=== PATIENT | female | born 1930 | race Caucasian/White ===

== ENCOUNTER 2017-08-14 23:16 | Emergency (ER) | payer OTHER ==
[~2017-08-14] VITALS: Ht 162.6 cm; Wt 52.5 kg
[~2017-08-14 23:16] MED LIST: AMLODIPINE BES2.5 MG PO; ARICEPT10 MG PO; ASPIR 8181 M1 PO; AVALIDE 150/1 TABLET PO; AVAPRO150 MG PO; CALCIUM 600 +1 EAC1 PO; CALCIUM OYSTER500 MG PO; CALTRATE 6001 TABLET PO; CELEXA20 MG PO; DIOVAN HCT 1601 EAC1 PO; DONEPEZIL HCL5 MG PO; FLEXERIL10 MG PO; FOSAMAX70 MG PO; LOSARTAN POTASS50 MG PO; MULTIVITAMIN1 EAC1 PO; NAMENDA5 MG PO; NORVASC2.5 MG PO; NORVASC5 MG PO; VICODIN 5-3001 EACH PO
[2017-08-15 00:07] LABS: HEMATOCRIT 37.6 % (36.0-46.0); MCH 28.6 PG (29.0-34.0); MCHC 32.7 G/DL (30.0-36.0); MCV 87.4 FL (83-99); MEAN PLAT.VOLUME 8.8 uM^3 (9.5-12.4); PLATELET COUNT 219 K/uL (156-360); RBC DIS.WIDTH-CV 13.9 % (11.8-14.6); WHITE BLOOD COUNT 5.9 K/uL (4.1-10.2)
[2017-08-15 00:17] LABS: CHLORIDE 108 mEq/L (99-109); POTASSIUM 3.9 mEq/L (3.7-5.4); SODIUM 143 mEq/L (136-147)
[2017-08-15 00:19] LABS: GLUCOSE 124 mg/dL (70-99)
[2017-08-15 00:20] LABS: ANION GAP 9 MEQ/L (2-14)
[2017-08-15 00:21] LABS: TOTAL BILIRUBIN 0.3 mg/dL (0.0-1.0)
[2017-08-15 00:22] LABS: ALKALINE PHOSPHATASE 62 IU/L (3-129)
[2017-08-15 00:23] LABS: GFR ESTIMATE (CALCULATED) > 59 mL/min/
[2017-08-15 00:24] LABS: UREA NITROGEN (BUN) 23 mg/dL (9-23)
[2017-08-15 00:26] LABS: LIPASE 16 U/L (1.0-51.0)
[2017-08-15 00:27] LABS: TROP-I INTERPRETATION NEGATIVE; TROPONIN-I 0.01 ng/mL (0.0-0.30)
[2017-08-15 01:35] LABS: ADD MIUA? YES; BILIRUBIN NEGATIVE; BLOOD NEGATIVE; COLOR YELLOW ((YELLOW)); GLUCOSE (STRIP) NEGATIVE; KETONES NEGATIVE; LEUKOCYTES TRACE; NITRITE NEGATIVE; PROTEIN (STRIP) NEGATIVE; SPECIFIC GRAVITY 1.017 (1.000-1.030); UROBILINOGEN 0.2 MG/DL (0.2-1.0)
[2017-08-15 02:15] LABS: BACTERIA NONE SEEN /HPF; EPITHELIAL CELLS RARE /HPF; MUCUS NONE SEEN /LPF; UCUL ADDED? NO; WHITE BLOOD CELLS 0-5 /HPF (0-5)
[2017-08-15 03:57] LABS: TROP-I INTERPRETATION NEGATIVE; TROPONIN-I < 0.01 ng/mL (0.0-0.30)
[2017-08-15] MEDS ORDERED: KEFLEX500 MG PO (04:13)
[2017-08-15 04:48] VITALS: BP 151/77
== END 2017-08-15 04:50 | disposition home or self-care (01) ==
LOC: EME 23:16
PROVIDERS: Emergency Medicine
DX: N39.0 Urinary tract infection, site not specified (principal); F32.9 Major depressive disorder, single episode, unspecified; I10 Essential (primary) hypertension; K21.9 Gastro-esophageal reflux disease without esophagitis; F41.9 Anxiety disorder, unspecified; G30.9 Alzheimer's disease, unspecified; Z79.82 Long term (current) use of aspirin
CPT/HCPCS: 71010; 74177; 80053; 81003; 83690; 84484; 85027; 93005; 99281; 99284

== ENCOUNTER 2018-03-21 19:13 | Emergency (ER) | payer OTHER, MEDICARE ==
[~2018-03-21] VITALS: Ht 157.5 cm; Wt 77.3 kg
[~2018-03-21 19:13] MED LIST changes: +KEFLEX500 MG PO
[2018-03-21 21:23] LABS: HEMATOCRIT 36.6 % (36.0-46.0); HEMOGLOBIN 12.7 G/DL (11.9-15.5); MCH 30.6 PG (29.0-34.0); MCHC 34.7 G/DL (30.0-36.0); MCV 88.2 FL (83-99); RBC DIS.WIDTH-CV 12.5 % (11.8-14.6); RBC DIS.WIDTH-SD 40.1 % (39-53); RED BLOOD COUNT 4.15 M/uL (3.80-5.20); WHITE BLOOD COUNT 5.2 K/uL (4.1-10.2)
[2018-03-21 21:27] LABS: PLATELET COUNT 215 K/uL (156-360)
[2018-03-21 21:31] LABS: CHLORIDE 101 mEq/L (99-109)
[2018-03-21 21:32] LABS: APPEARANCE CLEAR ((CLEAR)); BILIRUBIN NEGATIVE; BLOOD SMALL; COLOR YELLOW ((YELLOW)); GLUCOSE (STRIP) NEGATIVE; KETONES NEGATIVE; LEUKOCYTES SMALL; NITRITE NEGATIVE; PROTEIN (STRIP) NEGATIVE; SPECIFIC GRAVITY 1.013 (1.000-1.030); UROBILINOGEN 0.2 MG/DL (0.2-1.0)
[2018-03-21 21:32] LABS: POTASSIUM 3.8 mEq/L (3.7-5.4); SODIUM 137 mEq/L (136-147)
[2018-03-21 21:33] LABS: GLUCOSE 124 mg/dL (70-99)
[2018-03-21 21:37] LABS: CREATININE 0.8 mg/dL (0.6-1.3); GFR ESTIMATE (CALCULATED) > 59 mL/min/
[2018-03-21 21:38] LABS: UREA NITROGEN (BUN) 14 mg/dL (9-23)
[2018-03-21 21:44] LABS: TROP-I INTERPRETATION NEGATIVE; TROPONIN-I 0.02 ng/mL (0.0-0.30)
[2018-03-21 21:57] LABS: BACTERIA NONE SEEN /HPF; EPITHELIAL CELLS 1+ /HPF; MUCUS TRACE /LPF; RED BLOOD CELLS 0-5 /HPF (0-5)
[2018-03-21] MEDS ORDERED: MACROBID100 MG PO (22:15)
[2018-03-21 23:05] VITALS: BP 190/108
== END 2018-03-21 23:25 | disposition home or self-care (01) ==
LOC: EME → EDBD 19:13 → EME 23:25
PROVIDERS: Emergency Medicine
DX: N39.0 Urinary tract infection, site not specified (principal); R55 Syncope and collapse; S00.03XA Contusion of scalp, initial encounter; W19.XXXA Unspecified fall, initial encounter; Y92.099 Unspecified place in other non-institutional residence as the place of occurrence of the external cause; M50.322 Other cervical disc degeneration at C5-C6 level; I49.9 Cardiac arrhythmia, unspecified; F03.90 Unspecified dementia, unspecified severity, without behavioral disturbance, psychotic disturbance, mood disturbance, and anxiety; I10 Essential (primary) hypertension; Z79.82 Long term (current) use of aspirin
CPT/HCPCS: 70450; 71045; 72125; 80048; 80053; 81003; 82948; 84484; 85027; 93005; 99281; 99285